=== PATIENT | female | born 1940 | race Caucasian/White ===

== ENCOUNTER 2024-08-26 10:22 | Emergency (ER) | payer MEDICARE, SELFPAY ==
--- OUTSIDE RECORDS SUMMARY | 2024-08-26 10:29 | XMS_ITS | Clinical Summary ---
Author Organization [facility] Address [address] [place] [address] Phone Care Team Providers Care Acid Bleacher Name Role Phone Mike Atkins MD Primary Care Provider Allergies Active Allergy Reactions Criticality Noted Date Comments Amlodipine Hives 07/29/2022 Guaifenesin Vomiting 03/23/2019 Hydrocodone Other (see Comments) Low 12/05/2019 Reaction: Nausea, vomiting, Lovastatin Other (see Comments) 10/16/2010 hIGH LFT Other-Environmental Allergen (Not Found In Search) Unknown 10/16/2010 Medications pravastatin (PRAVACHOL) 80 MG Tablet Take 1 Tablet by mouth every evening. 90 Tablet 1 12/30/19 23 Active metoprolol tartrate (LOPRESSOR) 50 MG Tablet TAKE 1 TABLET BY MOUTH TWICE A DAY 180 Tablet 1 12/07/19 24 Active Misc. Devices [facility] Oxygen supplies- stationary & Portable Use O2 at 2 LPM cont. DX- J96.11 (Chr resp failure w hypoxemia); I50.22 ( Chr Syst CHF) 1 Each 02/15/20 24 Active Eliquis 5 MG Tablet TAKE 1 TABLET BY MOUTH TWICE A DAY FOR ATRIAL FIBRILLATION 180 Tablet 1 04/13/19 25 Active donepezil (ARICEPT) 10 MG Tablet TAKE 1/2 TABLET DAILY FOR 2 WEEKS THEN INCREASE TO 10 MG DAILY THEREAFTER 90 Tablet 3 05/24/19 25 Active furosemide (LASIX) 40 MG Tablet Take 1 Tablet by mouth daily. 30 Tablet 3 06/01/19 25 Active omeprazole (PriLOSEC) 20 MG CAPSULE DELAYED RELEASE TAKE 1 CAPSULE BY MOUTH EVERY DAY 90 Capsule 07/04/19 25 Active irbesartan-hyd roCHLOROthiazi de (AVALIDE) 300-12.5 MG Tablet TAKE 1 TABLET BY MOUTH EVERY DAY 90 Tablet 07/05/19 25 Active potassium chloride CR (KLORCON) 10 MEQ Tablet Controlled Release TAKE 1 TABLET BY MOUTH TWICE A DAY 180 Tablet 1 08/22/19 25 Active oxybutynin (DITROPAN) 5 MG Tablet TAKE 1 TABLET BY MOUTH EVERY DAY 90 Tablet 1 08/22/19 25 Active levothyroxine (SYNTHROID) 50 MCG Tablet TAKE 1 TABLET BY MOUTH EVERY DAY 90 Tablet 1 08/22/19 25 Active levothyroxine (SYNTHROID) 50 MCG Tablet TAKE 1 TABLET BY MOUTH EVERY DAY 90 Tablet 1 12/07/19 24 025 Discontinued potassium chloride CR (KLORCON) 10 MEQ Tablet Controlled Release TAKE 1 TABLET BY MOUTH TWICE A DAY 180 Tablet 1 12/07/19 24 025 Discontinued oxybutynin (DITROPAN) 5 MG Tablet TAKE 1 TABLET BY MOUTH EVERY DAY 90 Tablet 1 12/07/19 24 025 Discontinued Active Problems Problem Noted Date Diagnosed Date Chronic systolic CHF (congestive heart failure) 02/15/2024 Chronic respiratory failure with hypoxia 024 Memory impairment 04/28/2023 Bilateral lower extremity edema 03/07/2020 Other specified hypothyroidism 12/05/2019 Overactive bladder 12/05/2019 Generalized osteoarthritis 12/05/2019 Paroxysmal atrial fibrillation 09/26/2015 Idiopathic peripheral neuropathy 01/08/2015 Nonalcoholic steatohepatitis (MEDINA) 11/29/2012 GERD without esophagitis 04/16/2011 Spinal stenosis of lumbar region 04/16/2011 Essential hypertension, benign 10/16/2010 Other hyperlipidemia 10/16/2010 Encounters Date Type Department Care Team Description 08/20/2024 Refill [facility] - Internal Medicine [facility] [address] [place] [address] Mike Atkins MD Medication Refill 07/12/2024 11:00 AM CDT Office Visit [facility] - Internal Medicine [place] [address] Mike Atkins MD Chronic systolic CHF (congestive heart failure) (HCC) (Primary Dx); Paroxysmal atrial fibrillation (HCC); Other hyperlipidemia; Other specified hypothyroidism; Chronic respiratory failure with hypoxia (HCC); GERD without esophagitis Discharge Disposition: Discharged to home or Selfcare 07/12/2024 Travel 07/04/2024 Refill [facility] [address] [place] [address] Mike Atkins MD Medication Refill 07/01/2024 [facility] [address] [place] [address] Mike Atkins MD Medication Refill 06/23/2024 [facility]phone [facility] [place] [address] Mike Atkins MD 06/20/2024 [facility] [place] [address] Mike Atkins MD CMP (COMPREHENSIVE METABOLIC PANEL), THYROID STIMULATING HORMONE (TSH), THYROXINE (T4) FREE 06/19/2024 8:15 AM CDT [facility] [address] [place] [address] Caro Dolan PAC Chronic systolic CHF (congestive heart failure) (HCC) (Primary Dx); Essential hypertension, benign; Other specified hypothyroidism; Wound discharge Discharge Disposition: Discharged to home or Selfcare 06/19/2024 Travel 06/07/2024 Telephone [facility] [address] [place] [phone] Mike Atkins MD Appointment 06/01/2024 2:45 PM PLATING STRIPPER [facility] [place] [phone] Mike Atkins MD Acute on chronic systolic CHF (congestive heart failure) (HCC) (Primary Dx); Essential hypertension, benign; Other specified hypothyroidism; Paroxysmal atrial fibrillation (HCC) Discharge Disposition: Discharged to home or Selfcare 06/01/2024 Travel from Last 3 Months Immunizations Immunization Administration Dates Next Due COVID-19, MRNA, LNP-S, BIVAL ENT , MODERNA, 50 MCG/0.5 ML (12+) 01/19/2022 Covid-19, Mrna, Lnp-s, Pf, 3 0 Mcg/0.3 Ml Dose (Pfizer) 01/20/2021,06/21/2020,06/01/2020 Influenza Vaccine 12/07/2018 Influenza Vaccine, Quadrivalent, PF 12/11/2020 Influenza, High-dose, Quadrivalent 01/19/2022 Influenza, Injectable, Quadrivalent 02/12/2020 Pneumococcal Vaccine - 13 Valent 01/20/2017,12/04,04/16/2006 TDAP Vaccine 12/13/2019 Zoster Vaccine Recombinant 11/16/2017 Zoster Vaccine, live 09/09/2017 Family History Medical History Relation Name Comments Congestive Heart Failure Father Hypertension Mother Cancer Sister breast colon Relation Name Status Comments Father Mother Sister Social History Tobacco Use Types Packs/Day Years Used Date Smoking Tobacco: Former Cigarettes Passive Smoke Exposure: Past Smokeless Tobacco: Never Tobacco Cessation:Counseling Given: No Alcohol Use Standard Drinks/Week Comments Not Currently 0 (1 standard drink = 0.6 oz pur e alcohol) [employer] Answer Date Recorded In the past 12 months has [employer], or water [employer] threatened to shut off services in your home? No 06/29/2023 Social Connection and Isolat ion Panel [NHANES] Answer Date Recorded In a typical week, how many times do you talk on the phone with family, friends, or neighbors? More than three times a week 06/29/2023 How often do you get togethe r with friends or relatives? More than three times a week 06/29/2023 How often do you attend [facility] or christian services? More than 4 times per year 06/29/2023 Do you belong to any clubs o r organizations such as anabaptism groups, unions, fraternal or athletic groups, or school groups? Yes 06/29/2023 How often do you attend meet ings of the clubs or organizations you belong to? More than 4 times per year 06/29/2023 Are you , , di vorced, , never , or living with a partner? 06/29/2023 AUDIT-C Answer Date Recorded Q1: How often do you have a drink containing alcohol? Never 06/29/2023 Q2: How many drinks containi ng alcohol do you have on a typical day when you are drinking? Patient does not drink Q3: How often do you have si x or more drinks on one occasion? Never 06/29/2023 Overall Financial Resource Strain (CARDIA) Answe r Date Recorded How hard is it for you to pa y for the very basics like food, housing, medical care, and heating? Not hard at all 06/29/2023 PHQ-2 Answer Date Recorded Total Score - Questions 1-9 0 05/07 [facility] - Occupational Stress Questionnaire Answer Date Recorded Do you feel stress - tense, restless, nervous, or anxious, or unable to sleep at night because your mind is troubled all the time - these days? Not at all 06/29/2023 Exercise Vital Sign Answer Date Recorde d On average, how many days pe r week do you engage in moderate to strenuous exercise (like a brisk walk)? 0 days 06/29/2023 On average, how many minutes do you engage in exercise at this level? 0 min 06/29/2023 Hunger Vital Sign Answer Date Recorded Within the past 12 months, y ou worried that your food would run out before you got the money to buy more. Never true 06/29/19 24 Within the past 12 months, t he food you bought just didn't last and you didn't have money to get more. Never true 06/29/2023 PRAPARE - Transportation Answer Date Re corded In the past 12 months, has l ack of transportation kept you from medical appointments or from getting medications? No 06/04 In the past 12 months, has l ack of transportation kept you from meetings, work, or from getting things needed for daily living? No 06/29/2023 Housing Stability Vital Sign Answer Paxton e Recorded In the last 12 months, was t here a time when you were not able to pay the mortgage or rent on time? No 06/29/2023 In the last 12 months, how many places have you lived? 1 06/29/2023 In the last 12 months, was t here a time when you did not have a steady place to sleep or slept in a halfway (including now)? No 06/29/2023 Education Answer Date Recorded What is the highest level of school you have completed or the highest degree you have received? Some college, no degree 07/29/2022 Sexually Active Control Partners Comments Not Currently Comments No Sex and Gender Information Value Date Recorded Sex Assigned at Not on file Legal Sex Female 11:41 AM CDT Gender Identity Not on file Sexual Orientation Not on file Last Filed Vital Signs Vital Sign Reading Time Taken Comments Blood Pressure 134/64 07/12/2024 10:53 AM CDT Pulse 60 07/12/2024 10:53 AM CDT Temperature 36.2 C (97.2 F) 07/12/2024 10:53 AM CDT Respiratory Rate 14 06/19/2024 8:09 AM CDT Oxygen Saturation 89% 07/12/2024 10:53 AM CDT Inhaled Oxygen Concentration - - Weight 102.1 kg (225 lb) 07/12/2024 10:53 AM CDT Height 149.9 cm (4' 11 ) 07/12/2024 10:53 AM CDT Body Mass Index 45.44 07/12/2024 10:53 AM CDT Plan of Treatment Upcoming Encounters Date Type Department Care Team (Late st Contact Info) Description 10/12/2024 11:00 AM CDT [facility] Visit [facility] - Internal Medicine - [place] [address] [place] [phone] Mike Atkins MD [address] [place] [address] Health Maintenance Due Date Last Done Comments Hepatitis C Virus (HCV) Screening 1940 Respiratory Syncytial Virus (RSV) Immunization (Adult) (1 - 1-dose 75+ series) 2013 SARS-COV-2 Immunization ( season) 2023 01/19/2022, 01/20/2021, 06/21/2020, Additional history exists Td Immunization Every 10 Years (Adults With 1 Tdap) 12/12/2029 12/13/2019 Pneumococcal Immunization Combined Discontinued 01/20/2017, 12/23/2011, 04/16/2006 Zoster Immunization Discontinued 11/16/2017, 11/16/2017, 09/09/2017 Pneumococcal Immunization (50+ years) Completed 12/17/2018, 01/20/2017, 12/23/2011, Additional history exists DTaP/Tdap/Td Immunization Discontinued 12/13/2019 Influenza Immunization Discontinued , 12/11/2020, 02/12/2020, Additional history exists DEXA Bone Density Discontinued Hepatitis B Immunization Aged Out No longer eligible based on patient's age to complete this topic Human Papillomavirus (HPV) Immunization Aged Out No longer eligible based on patient's age to complete this topic Meningococcal Immunization (ACWY) Aged Out No longer eligible based on patient's age to complete this topic Rotavirus Immunization Aged Out No lo nger eligible based on patient's age to complete this topic Procedures Procedure Name Priority Date/Time Associated Diagnosis Comments THYROXINE (T4) FREE Routine 06/19/2024 8 :05 AM CDT Other specified hypothyroidism THYROID STIMULATING HORMONE (TSH) Routine 06/19/2024 8:05 AM CDT Other specified hypothyroidism CMP (COMPREHENSIVE METABOLIC PANEL) Routine 06/19/2024 8:05 AM CDT Essential hypertension, benign from Last 3 Months Results * THYROXINE (T4) FREE (06/19/2024 8:05 AM CDT) T4 FREE 1.2 0.7 - 1.9 ng/dL 06/19/2024 11:44 PM CDT [facility] Blood Venipuncture / Unknown 06/19/2024 8:05 AM CDT 06/19/2024 8:05 AM CDT us Mike Atkins MD CHEMISTRY ORDERABLES Final Result Performing Organization Address City/[facility]/ZIP Co de Phone Number [facility] [address] [place] [address], [place] * THYROID STIMULATING HORMONE (TSH) (06/19/2024 8:05 AM CDT) TSH 1.991 0.300 - 5.000 mIU/L 06/19/2024 11:44 PM CDT [facility] Blood Venipuncture / Unknown 06/19/2024 8:05 AM CDT 06/19/2024 8:05 AM CDT Mike Atkins MD CHEMISTRY ORDERABLES Final Result Performing Organization Address [facility] Co de Phone Number [facility] [address] [place] [address], [place] * (ABNORMAL) CMP (COMPREHENSIVE METABOLIC PANEL) (06/19/2024 8:05 AM CDT) Pathologist [facility] SODIUM 135(L) 136 - 145 mmol/L 06/19/2024 11:20 PM CDT [facility] POTASSIUM 3.9 3.5 - 5.1 mmol/L 06/19/2024 11:20 PM CDT [facility] CHLORIDE 96(L) 98 - 107 mmol/L 06/19/2024 11:20 PM CDT [facility] CO2, VENOUS 32(H) 22 - 30 mmol/L 06/19/2024 11:20 PM CDT [facility] ANION GAP 7.0 <18.0 mmol/L 06/19/2024 11:20 PM CDT [facility] GLUCOSE 98 70 - 99 mg/dL 06/19/2024 11:20 PM CDT [facility] BUN 24(H) 10 - 20 mg/dL 06/19/2024 11:20 PM CDT [facility] CREATININE, BLOOD 1.05(H) 0.60 - 1.00 mg/dL 06/19/2024 11:20 PM CDT [facility] BUN/CREATININE RATIO 23(H) 12 - 20 ratio 06/19/2024 11:20 PM CDT [facility] TOTAL PROTEIN 7.5 6.0 - 8.0 g/dL 06/19/2024 11:20 PM CDT [facility] ALBUMIN 3.8 3.5 - 5.0 g/dL 06/19/2024 11:20 PM [facility] A/G RATIO 1.0 1.0 - 2.2 06/19/2024 11:20 PM [facility] CALCIUM 9.3 8.7 - 10.5 mg/dL 06/19/2024 11:20 PM CDT [facility] T BILI 0.7 0.2 - 1.2 mg/dL 06/19/2024 11:20 PM T [facility] SGOT (AST) 28 <43 U/L 06/19/2024 11:20 PM [facility] SGPT (ALT) 9 <56 U/L 06/19/2024 11:20 PM [facility] ALKALINE PHOSPHATASE 75 40 - 150 U/L 06/19/2024 11:20 PM [facility] IS THE PATIENT REQUIRED TO BE FASTING? No 06/19/2024 11:20 PM [facility] GFR, ESTIMATED 52(L) >=60 06/19/2024 11:20 PM [facility] Comment: Creatinine Clearance is the preferred criteria for selecting drug dose adjustments in renally impaired patients. The GFR is provided as additional pertinent clinical information. GFR is reported in mL/min/1.73 sq m. Calculation based on the Chronic Kidney Disease Epidemiology Collaboration (CKD- EPI) equation refit without adjustment for race. GFR, EST. 60 >=60 025 11:20 PM T [facility] GFR, EST. NONAFRICAN 50(L) >=60 06/19/2024 11:20 PM [facility] Blood Venipuncture / Unknown 06/19/2024 8:05 AM CDT 06/19/2024 8:05 AM CDT us Mike Atkins MD CHEMISTRY ORDERABLES Final Result [facility] [address] [place] [address], [place] from Last 3 Months Insurance MEDICARE C [employer] Care Teams Acid Bleacher Relationship Specialty Start Date End Date Mike Atkins MD [address] [facility] [place] [address] PCP - General Internal Medicine 01/04/17
--- OUTSIDE RECORDS SUMMARY | 2024-08-26 10:29 | XMS_ITS | Encounter Summary ---
Author Organization [facility] Address [address] [place] [address] Phone Care Team Providers Care Steno Pool Supervisor Name Role Phone Mike Atkins MD Primary Care Provider Reason for Visit * Reason Comments Medication Refill Encounter Details Date Type Department Care Team (Late Contact Info) Description 03/08/2023 Refill [facility] - [facility] - [place] [address] [place] [phone] Mike Atkins MD [address] [facility] [place] [address] Medication Refill Social History Tobacco Use Types Packs/Day Years Used Date Smoking Tobacco: Former Cigarettes Passive Smoke Exposure: Past Smokeless Tobacco: Never Alcohol Use Standard Drinks/Week Comments Not Currently 0 (1 standard drink = 0.6 oz pur e alcohol) PHQ-2 Answer Date Recorded Total Score - Questions 1-9 0 06/03 Education Answer Date Recorded What is the [...] on file Sexual Orientation Not on file documented as of this encounter Plan of Treatment Upcoming Encounters Date Type Department Care Team (Late Contact Info) Description 10/12/2024 11:00 AM CDT Office Visit [facility] - [facility] - [place] [address] [place] [phone] Mike Atkins MD [address] [place] [address] documented as of this encounter Visit Diagnoses Not on filedocumented in this encounter Additional Health Concerns Assessment Noted Time PHQ-9 Depression Total Score: 0 06/06/19 21 9:00 AM FORGING ENGINEER documented as of this encounter Care Teams Steno Pool Supervisor Relationship Specialty Start Date End Date Mike Atkins MD [address] [place] [address] PCP - General Internal Medicine 01/04/17 documented as of this encounter
--- OUTSIDE RECORDS SUMMARY | 2024-08-26 10:29 | XMS_ITS | Encounter Summary ---
Author Organization [facility] Address [address] [facility] [place] [address] Phone Care Team Providers Care Nissan Sales Consultant Name Role Phone Mike Atkins MD Primary Care Provider [phone] Reason for Visit * Reason Comments Medication Refill Encounter Details Date Type Department Care Team (Late st Contact Info) Description 02/27/2021 Refill [facility] - Internal Medicine - [place] [address] [place] [phone] Mike Atkins MD [address] [place] [address] Medication Refill Social History Tobacco Use Types Packs/Day Years Used Date Smoking Tobacco: Former Smokeless Tobacco: Never Alcohol Use Standard Drinks/Week Comments Not Currently 0 (1 standard drink = 0.6 oz pur e alcohol) PHQ-2 Answer Date Recorded Total Score - Questions 1-9 0 03/0 06/2020 Sexually Active Control Partners Comments Not Currently Comments No Sex and Gender Information Value Date Recorded Sex Assigned at Not on file Legal Sex Female 11:41 AM CDT Gender Identity Not on file Sexual Orientation Not on file documented as of this encounter Miscellaneous Notes * Telephone Encounter - Velia Hendrickson RN - 02/28/2021 12:17 PM MARKET REPORTER Medication failed the protocol, provider to review and approve the medication order if appropriate. Requested Prescriptions Pending Prescriptions Disp Refills pravastatin (PRAVACHOL) 80 MG Tablet [Pharmacy Med Name: PRAVASTATIN SODIUM 80 MG TAB] 90 Tablet 1 Sig: TAKE 1 TABLET BY MOUTH EVERY DAY AT BEDTIME [facility] CoA Reductase Inhibitors Protocol Failed - 02/27/2021 12:28 AM Failed - Lipid panel in past 12 months LDL Date Value Ref Range Status 07/12/2020 89 0 - 130 mg/dL Final Passed - Visit with relevant provider in past 12 months or upcoming 90 days Recent Visits Date Type Provider Dept 12/11/20 Office Visit Mike Atkins MD [facility] 09/05/20 Office Visit Mike Atkins MD [facility] 06/05/20 Office Visit Mike Atkins MD [facility] 03/07/20 Office Visit Mike Atkins MD [facility] Showing recent visits within past 365 days and meeting all other requirements Future Appointments Date Type Provider Dept 03/18/21 Appointment Mike Atkins MD [facility] Showing future appointments within next 90 days and meeting all other requirements ET REPORTER documented in this encounter Plan of Treatment Upcoming Encounters Date Type Department Care Team (Late st Contact Info) Description 10/12/2024 11:00 AM CDT [facility] - [place] [address] [place] [address] Mike Atkins MD [address] [place] [address] documented as of this encounter Visit Diagnoses Not on filedocumented in this encounter Additional Health Concerns Assessment Noted Time PHQ-9 Depression Total Score: 0 06/06/19 9:00 AM MARKET REPORTER documented as of this encounter Care Teams Nissan Sales Consultant Relationship Specialty Start Date End Date Mike Atkins MD [address] [place] [address] PCP - General Internal Medicine 01/04/17 documented as of this encounter
[2024-08-26 11:01] VITALS: BP 121/62; PULSE 95; RESP 22; TEMP 36.5; O2SAT 84
[2024-08-26 11:05] LABS: EDUAAPPEAR Clear; EDUABILI Negative (Negative); EDUABLOOD Negative (Negative); EDUACOLOR1 Yellow; EDUAGLUCOSE Negative (Negative); EDUAKETONE Negative (Negative); EDUALEUKO Negative (Negative); EDUANITRATE Negative (Negative); EDUAPROTEIN Trace (Negative); EDUASPGRAVITY 1.015; EDUAUROBILI 0.2
[2024-08-26 11:07] VITALS: O2SAT 88
--- NOTE | 2024-08-26 11:17 | ED.FEMALEGU ---
HPI - Female Genitourinary General Chief complaint: Urogenital-Female Stated complaint: Urinary Problem Time Seen by Provider: 08/26/24 11:00 Source: patient and RN notes reviewed Mode of arrival: ambulatory Limitations: dementia History of Present Illness HPI Narrative: 83-year-old female presents Express Care with family complain of possible UTI. Patient has no complaints. Family states that she is becoming increasingly weak and more fatigued over the last week. They said normally when this happens she develops a UTI. They did a home UTI test that showed evidence of a UTI. Patient has a history of congestive heart failure and family states that it is terminal. Patient normally wears 3 L of oxygen at all times. Daughter is medical power of patent attorney for patient. Patient's oxygen is hypoxic in triage. Patient does have a history of mild dementia. Family denies patient having worsening confusion or disorientation. Patient resides at assisted living with nursing care present. Related Data Home Medications ?Medication ?Instructions ?Recorded ?Confirmed ?Last Taken ?Type apixaban 5 mg tablet (Eliquis) mg 08/26/24 Unknown History donepezil 10 mg tablet mg 08/26/24 Unknown History furosemide 40 mg tablet mg 08/26/24 Unknown History irbesartan 300 tablet 08/26/24 Unknown History mg-hydrochlorothiazide 12.5 mg tablet levothyroxine 50 mcg tablet mcg 08/26/24 Unknown History metoprolol tartrate 50 mg tablet mg 08/26/24 Unknown History omeprazole 20 mg capsule,delayed mg 08/26/24 Unknown History release oxybutynin chloride 5 mg tablet mg 08/26/24 Unknown History potassium chloride 10 mEq meq PO 08/26/24 Unknown History tablet,extended release pravastatin 08/26/24 Unknown History Allergies Allergy/AdvReac Type Severity Reaction Status Date / Time No Known Allergies Allergy Verified 08/26/24 10:59 Review of Systems Review of Systems: CONSTITUTIONAL: Denies fever, chills, or sweats. Positive for fatigue. EYES: Denies visual changes, redness, or discharge. ENT: Denies rhinorrhea, congestion, sore throat, or otalgia. CARDIOVASCULAR: Denies chest pain, palpitations, or edema. RESPIRATORY: Denies cough or dyspnea. GASTROINTESTINAL: Denies abdominal pain, nausea, vomiting, or diarrhea. GENITOURINARY: Denies dysuria or hematuria. SKIN: Denies rash or itching. MUSCULOSKELETAL: Denies back pain, joint pain, or myalgia. NEUROLOGIC: Denies headache, numbness. Positive for weakness. PSYCHIATRIC: Denies anxiety or depression. All other systems reviewed are negative, except as documented in HPI. [facility] Past Medical History Medical History (Updated 08/26/24 @ 12:23 by Ignacio Retana APRN) Congestive heart failure Comments At the time of my signature, I reviewed and agree with the nursing past medical, surgical, social, and family history. There is no relevant family history pertinent to the patient complaint. Exam Narrative: GENERAL: This is a well-nourished, well-developed adult, in no apparent distress. They are non ill-appearing, nontoxic appearing. Patient is sitting in a wheelchair. HEAD: normocephalic, atraumatic. EYES: Sclera clear/white. Conjunctiva normal. Vision is grossly intact. Extraocular movements intact EARS: External ears normal, hearing grossly intact. NOSE: External nose normal THROAT: Mucous membranes moist, NECK: Neck supple, CARDIOVASCULAR: Regular rate and rhythm without murmurs, gallops, or rubs. RESPIRATORY: Crackles heard throughout the patient's lungs. Breath sounds equal bilaterally. No wheezes, or rhonchi. SKIN: warm, Dry, intact with no suspicious lesions or rash, good texture and turgor. NEURO: awake, alert, and oriented to person, place and time. Patient is disoriented to events. There were no obvious focal neurologic abnormalities. Mental status is baseline. EXTREMITIES: 3+ pitting edema to the bilateral lower extremities. BACK: Nontender without deformity. No CVA tenderness. Course Course Emergency Course: Portions of this record may have been created with voice recognition software Level of Care: Express Care Visit Vital Signs Vital signs: Vital Signs Temperature 97.7 F 08/26/24 11:01 Pulse Rate 95 08/26/24 11:01 Respiratory Rate 22 H 08/26/24 11:01 Blood Pressure 121/62 08/26/24 11:01 Pulse Oximetry 84 L 08/26/24 11:01 Oxygen Delivery Nasal Cannula 08/26/24 11:01 Oxygen Flow Rate 3 08/26/24 11:01 Temperature 97.7 F 08/26/24 11:01 Pulse Rate 95 08/26/24 11:01 Respiratory Rate 22 H 08/26/24 11:01 Blood Pressure 121/62 08/26/24 11:01 Pulse Oximetry 88 L 08/26/24 11:07 Oxygen Delivery Nasal Cannula 08/26/24 11:07 Oxygen Flow Rate 3 08/26/24 11:07 Reviewed MDM - Female Genitourinary MDM Narrative Medical decision making narrative: Patient's mentation overall appropriate however she appears to be and forgetful at times. Patient's family denies any concern for worsening confusion or altered mental status and reports this is her baseline. Patient's daughter is here and is the POA for this patient. Patient's O2 saturations are sitting around 88% to 90% on 3 L per nasal cannula. Family states that this is normal for her. However given the patient's exam there is concerned that she experiencing a CHF exacerbation, worsening fluid retention, or another condition causing worsening respiratory failure in a would be best to have a further evaluation and management of her condition in the ER. It is my recommendation for this patient to seek a higher level care and proceed immediately to the ER by ambulance. Daughter here is the POA for the patient does not want to take her to the ER because this is a chronic condition for her. Patient was placed at the 6 L of oxygen via nasal cannula here with O2 saturations improving to 92-93%. Patient is not in any apparent distress and denies any symptoms. Patient and family were explained including but not limited to the risks, benefits, and alternatives of going to the ER for further evaluation and management of her condition. Patient and the POA elected to sign out against medical advice. Urine dipstick was negative for any evidence of urinary tract infection. Urine culture is pending. Anticipatory guidance given. Strict ER precautions were discussed. Patient's family also discuss about the patient possibly starting palliative care or hospice care due to her condition. Advised the family to discuss this this option with her primary care provider if they no longer wish to pursue aggressive medical treatment. Differential Diagnosis Differential diagnosis: Likely urinary tract infection and other (CHF exacerbation, respiratory failure, pneumonia) Lab Data Attestation: I reviewed the patient's lab results. Labs: Lab Results 08/26/24 Range/Units 11:02 POC Urine Color Yellow POC Urine Clarity Clear POC Urine pH 6.0 POC Ur Specif [place] 1.015 POC Urine Protein Trace (Negative) POC Ur Glucose (UA) Negative (Negative) POC Urine Ketones Negative (Negative) POC Urine Blood Negative (Negative) POC Urine Nitrite Negative (Negative) POC Urine Bilirubin Negative (Negative) POC Urine Urobilinogen 0.2 POC U Leukocyte Esteras Negative (Negative) Critical Care Time Critical Care Time Critical Care Time: No Discharge Plan Discharge Clinical Impression: Hypoxia Congestive heart failure Qualifiers: Heart failure type: unspecified Heart failure chronicity: unspecified Qualified Code(s): I50.9 - Heart failure, unspecified Patient Disposition: Left Against Medical Advice Condition: Unstable Patient Language: [place] Prescriptions: No Action furosemide 40 mg tablet donepezil 10 mg tablet potassium chloride 10 mEq tablet extended release PO levothyroxine 50 mcg tablet irbesartan-hydrochlorothiazide 300-12.5 mg tablet metoprolol tartrate 50 mg tablet omeprazole 20 mg capsule,delayed release(DR/EC) oxybutynin chloride 5 mg tablet Eliquis 5 mg tablet pravastatin Follow-up/Referrals: Wilbert,Mike Lindsey MD [Primary Care Provider] - Time of Disposition: 11:16
== END 2024-08-26 11:16 | disposition left against medical advice (07) ==
PROVIDERS: PCP Internal Medicine
DX: R09.02 Hypoxemia (principal); I50.9 Heart failure, unspecified; Z99.81 Dependence on supplemental oxygen; F03.A0 Unspecified dementia, mild, without behavioral disturbance, psychotic disturbance, mood disturbance, and anxiety
CPT/HCPCS: 81003; 87086; 99203; G0463